=== PATIENT | female | born 1995 ===

== ENCOUNTER 2018-11-24 10:16 | Emergency (ER) | payer OTHER, SELFPAY ==
[2018-11-24 10:39] VITALS: BMI 24.7
[2018-11-24] MEDS ORDERED: Morphine 4 MG/ML VIAL IVP ONE (10:58)
--- NOTE | 2018-11-24 11:12 | ED PDOC ---
HPI: Abdomen Time Seen by Provider: 11/24/18 10:52 Chief Complaint (Nursing): Abdominal Pain Chief Complaint (Provider): RLQ Pain History Per: Patient, Family History/Exam Limitations: no limitations Onset/Duration Of Symptoms: Days (three ) Outside of [place] travel?: No Current Symptoms Are (Timing): Still Present Severity: Moderate Location Of Pain/Discomfort: RLQ (Pt presents to the ED complaining of RLQ pain and tenderness at [place] along with RUQ pain without a gupta sign. Rovsing and merckle sign are postive. Pt denies vomiting and fever with occasional nausea. Pt denies recent illness or past surgeries) Past Medical History Reviewed: Historical Data, Nursing Documentation, Vital Signs Vital Signs: Last Vital Signs Temp 97 F L 11/24/18 10:37 Pulse 96 H 11/24/18 10:37 Resp 18 11/24/18 10:37 BP 115/73 11/24/18 10:37 Pulse Ox 99 11/24/18 10:37 - Family History Family History: States: Unknown Family Hx - Home Medications Home Medications: Ambulatory Orders Medication Instructions Recorded Acetaminophen with Codeine 1 tab PO QID #12 tablet 11/24/18 [Tylenol with Codeine #3 Tablet] - Allergies Allergies/Adverse Reactions: Allergies Allergy/AdvReac Type Severity Reaction Status Date / Time No Known Allergies Allergy Verified 11/24/18 10:45 Review of Systems ROS Statement: Except As Marked, All Systems Reviewed And Found Negative Gastrointestinal: Positive for: Nausea, Abdominal Pain Physical Exam - Reviewed Nursing Documentation Reviewed: Yes Vital Signs Reviewed: Yes - Physical Exam Appears: Positive for: Uncomfortable, In Acute Distress Head Exam: Positive for: ATRAUMATIC, NORMAL INSPECTION Skin: Positive for: Normal Color, Warm, Dry. Negative for: Diaphoresis, Pallor, Rash Eye Exam: Positive for: Normal appearance. Negative for: Periorbital swelling, Periorbital tenderness ENT: Positive for: Normal ENT Inspection Neck: Positive for: Normal, Supple Cardiovascular/Chest: Positive for: Regular Rate, Rhythm Respiratory: Positive for: Normal Breath Sounds Pulses-Carotid (L): 2+ Pulses-Carotid (R): 2+ Pulses-Radial (L): 2+ Pulses-Radial (R): 2+ Gastrointestinal/Abdominal: Positive for: Bowel Sounds (active in all four lazara drants), Tenderness (Postive ttp at [place] without a positive gupta sign.), Guarding, Rebound. Negative for: Distended, Asicites Back: Positive for: Normal Inspection. Negative for: L CVA Tenderness, R CVA Tenderness, Vertebral Tenderness - Laboratory Results Result Diagrams: 11/24/18 11:20 11/24/18 11:20 - ECG O2 Sat by Pulse Oximetry: 99 Medical Decision Making Medical Decision Making: I: r/o appy P: CT Abd Pelvis with IV CBC CMP UA 4 & 4 medication Disposition - Clinical Impression Clinical Impression: Ovarian cyst - Patient ED Disposition Is Patient to be Admitted: No Doctor Will See Patient In The: Office Counseled Patient/Family Regarding: Diagnosis, Need For Followup, Rx Given - Disposition [facility] [Outside] Disposition: Routine/Home Disposition Time: 19:03 Condition: STABLE Prescriptions: Acetaminophen with Codeine [Tylenol with Codeine #3 Tablet] 1 tab PO QID #12 tablet Instructions: Ovarian Cysts, Ovarian Cyst (DC) Forms: [employer] (Maori), [employer] (Hungarian) Print Language: SAO TOMEAN
[2018-11-24] MEDS ORDERED: Morphine 4 MG/ML VIAL ONE (11:13)
[2018-11-24 11:26] LABS: BASO % 0.3 % (0.0-2.0); EOS % 0.1 % (0.0-4.0); HEMOGLOBIN 13.7 g/dL (12.0-16.0); LYMPH # 1.2 K/uL (1.0-4.3); LYMPH % 8.4 % (20.0-40.0); MEAN CELL VOLUME 94.9 fl (81.0-99.0); MEAN CORPUSCULAR HEMOGLOBIN 31.8 pg (27.0-31.0); MEAN CORPUSCULAR HGB CONC 33.5 g/dL (33.0-37.0); MONO # 0.4 K/uL (0.0-0.8); MONO % 3.1 % (0.0-10.0); NEUT # 12.8 K/uL (1.8-7.0); NEUT % 88.1 % (50.0-75.0); PLATELET COUNT 279 K/uL (130-400); RED CELL DISTRIBUTION WIDTH 12.8 % (11.5-14.5); WHITE BLOOD COUNT 14.5 K/uL (4.8-10.8)
[2018-11-24] MEDS ORDERED: Sodium Chloride 0.9% 1,000 ML IV ONE (11:43)
[2018-11-24 11:45] LABS: ALB/GLOB RATIO 1.6 (1.0-2.1); ALBUMIN 4.7 g/dL (3.5-5.0); ALT/SGPT 26 U/L (9-52); AST/SGOT 28 U/L (14-36); BLOOD UREA NITROGEN 12 mg/dl (7-17); CALCIUM 9.1 mg/dL (8.4-10.2); GFR NON-AFRICAN AMERICAN > 60; LIPASE 51 U/L (23-300)
[2018-11-24 12:02] LABS: LYMPHOCYTE 12 % (20-50); MONOCYTE 5 % (0-10); NEUTROPHIL 83 % (42-75); TOTAL CELLS COUNTED 100
[2018-11-24 12:04] LABS: PLATELET ESTIMATE NORMAL (NORMAL)
[2018-11-24] MEDS ORDERED: Sodium Chloride 0.9% 50 ML IV ONE (12:30)
[2018-11-24] MEDS ORDERED: Iohexol 300 100 ML IJ ONE (12:30)
--- NOTE | 2018-11-24 13:57 | CT ---
Date of service: 11/24/2018 PROCEDURE: CT Abdomen and Pelvis with contrast HISTORY: Abdominal pain. Appendicitis suspected. Negative test (concurrent with this examination). COMPARISON: None. TECHNIQUE: Intravenous contrast dose: 95 cc Omnipaque 300. Radiation dose: Total exam DLP = 328.78 mGy-cm. This CT exam was performed using one or more of the following dose reduction techniques: Automated exposure control, adjustment of the mA and/or kV according to patient size, and/or use of iterative reconstruction technique. FINDINGS: LOWER THORAX: Unremarkable. LIVER: Unremarkable. No gross lesion or ductal dilatation. GALLBLADDER AND BILE DUCTS: Unremarkable. PANCREAS: Unremarkable. No gross lesion or ductal dilatation. SPLEEN: Unremarkable. ADRENALS: Unremarkable. No mass. KIDNEYS AND URETERS: Unremarkable. No hydronephrosis. No solid mass. VASCULATURE: Unremarkable. No aortic aneurysm. No atherosclerotic calcification or mural plaque present. BOWEL: Constipation without fecal impaction or obstruction. APPENDIX: The appendix is of normal caliber. The appendix is difficult to visualize because of an absence of adjacent fat and artifact created from the interface between fluid and air-filled loops of bowel and adjacent structures including the appendix. PERITONEUM: Unremarkable. No free fluid. No free air. LYMPH NODES: Unremarkable. No enlarged lymph nodes. BLADDER: Unremarkable. REPRODUCTIVE: Deformity of cysts/follicles with contrast-enhancing characteristics right adnexa suggesting ruptured adnexal cysts. Adjacent trace fluid noted. BONES: No acute fracture. OTHER FINDINGS: None. IMPRESSION: No compelling evidence of acute appendicitis. The appendix is suboptimally visualized for reasons described above. Deformity of right adnexal cysts/follicles with fluid in the cul-de-sac likely recently ruptured cyst. Additional benign and/or incidental findings described above.
--- NOTE | 2018-11-24 17:24 | US ---
Date of service: 11/24/2018 HISTORY: r/o cyst COMPARISON: Abdomen pelvis CT with contrast 11/24/2018. TECHNIQUE: Transabdominal and transvaginal pelvic ultrasound was performed with longitudinal and transverse images submitted for interpretation. FINDINGS: UTERUS: Measures 6.4 x 3.3 x 4.7 cm. Normal in size and appearance. No fibroid or other mass lesion seen. ENDOMETRIUM: Measures 14.0 mm in diameter. Endometrial thickness is prominent but without focal cyst or solid mass clearly associated. CERVIX: No cervical abnormality identified. RIGHT OVARY: Measures 3.2 x 1.8 x 3.8 cm. There is a complex cyst avascular on color Doppler ultrasound measuring 1.5 x 0.9 x 0.9 cm. This may reflect partial cyst rupture. There is a separate hypoechoic structure measuring 2.1 x 1.3 x 2.1 cm possibly representing a nodule separate from the right ovary of uncertain origin, medial and cephalad to the right ovary. Normal intra-ovarian arterial blood flow. LEFT OVARY: Measures 2.4 x 1.9 x 2.9 cm. No solid mass. Normal intra-ovarian arterial blood flow. FREE FLUID: Trace cul-de-sac fluid is appreciate which may be physiologic. This may reflect partial limited rupture of prior adnexal cyst. OTHER FINDINGS: None. IMPRESSION: Thickened endometrium is identified upper limits normal thickness of 14.0 mm. No discrete mass clearly identified with the uterus and cervix otherwise unremarkable. Small complex cyst 1.5 at the right ovary potentially representing a partial rupture. A separate hypoechoic nodule is seen in the right adnexal compartment more cephalad relative to the right ovary measuring 2.1 cm greatest dimension. This is not apparent in prior CT 11/24/2018. Transvaginal sonography recommended for follow-up in 8-12 weeks. Unremarkable appearing left ovary.
[2018-11-24 19:19] VITALS: BP 110/70; PULSE 92; RESP 16; TEMP 97.3; O2SAT 98
== END 2018-11-24 19:20 | disposition home or self-care (01) ==
LOC: H.ER 10:16
DX: N83.209 Unspecified ovarian cyst, unspecified side (principal)
CPT/HCPCS: 74177; 76830; 80053; 81025; 83690; 85025; 96374; 96375; 99284; J2270; J2405; J7030; Q9967